=== PATIENT | male | born 2000 | race Caucasian/White ===

== ENCOUNTER 2023-01-04 22:48 | Emergency (ER) | payer BC ==
[~2023-01-04] VITALS: Ht 185.4 cm; Wt 75.0 kg
[2023-01-04 22:57] VITALS: TEMP 97.2
[2023-01-04 23:45] LABS: COLLECTION METHOD CLEAN CATCH
[2023-01-05 00:05] LABS: SQUAMOUS EPITHELIAL None Seen /hpf (0-10); URINE BACTERIA None Seen /hpf (NONE SEEN); URINE RBC 0-2 /hpf (0-2)
[2023-01-05 00:07] LABS: URINE APPEARANCE Clear (CLEAR/HAZY); URINE BLOOD Negative (NEGATIVE); URINE COLOR Yellow (YELLOW); URINE GLUCOSE Negative (NEGATIVE); URINE KETONE Negative (NEGATIVE); URINE NITRATE Negative (NEGATIVE); URINE PROTEIN(semi-quant) Negative (NEGATIVE); URINE UROBILINOGEN 0.2 E.U/dL (0.2-1.0)
[2023-01-05 00:45] VITALS: BP 112/58; PULSE 80
== END 2023-01-05 00:45 | disposition home or self-care (01) ==
LOC: COL.ER 22:48
PROVIDERS: Physician Assistant
DX: N50.812 Left testicular pain (principal); Z28.310 Unvaccinated for COVID-19
CPT/HCPCS: J1885